=== PATIENT | female | born 1950 | race Caucasian/White ===

== ENCOUNTER → 2017-01-07 | Outpatient (CLI) | payer MEDICARE, OTHER ==
--- NOTE | 2017-01-07 11:12 | WOMENS IMAGING REPORT ---
EXAM DESCRIPTION: 3D SCREENING MAMMO BILAT COMPLETED DATE/TIME: 01/07/2017 10:39 am REASON FOR STUDY: SCREENING MAMMO Z12.31 ENCNTR SCREEN MAMMOGRAM FOR MALIGNANT NEOPLASM OF MITZI COMPARISON: June 2015 and March 2010 TECHNIQUE: Standard craniocaudal and mediolateral oblique views of each breast recorded using digita l acquisition and breast tomosynthesis. LIMITATIONS: None. FINDINGS: No masses, calcifications or architectural distortion. No areas of suspicion. Read with the assistance of CAD. .[facility] - R2 Cenova Version 1.3 .[facility] Imaging - R2 Cenova Version 1.3 .[facility] Imaging - R2 Cenova Version 2.4 .[facility] - R2 Cenova Version 2.4 .[facility] - R2 Garment Cutter Version 9.2 IMPRESSION: NORMAL MAMMOGRAM. BIRADS 1. BREAST DENSITY: b. There are scattered areas of fibroglandular density. BIRAD: 1 NEGATIVE RECOMMENDATION: ROUTINE SCREENING COMMENT: The patient has been notified of the results by letter per SA requirements. Additional no tification policies are in place for contacting patient with suspicious or incomplete findings. Quality ID #[id number]: The [employer] recommends an annual screening mammogram for women aged 40 years or over. This facility utilizes a reminder system to ensure that all patients receive reminder letters, and/or direct phone calls for appointments. This includes reminders for routine scr eening mammograms, diagnostic mammograms, or other Breast Imaging Interventions when appropriate. Th is patient will be placed in the appropriate reminder system. The [employer] (ACR) has developed recommendations for screening MRI of the breast s in certain patient populations, to be used in conjunction with mammography. Breast MRI surveillanc e may be appropriate for women with more than 20% lifetime risk of developing breast cancer as deter mined by genetic testing, significant family history of the disease, or history of mantle radiation f or Hodgkins Disease. ACR Practice Guidelines 2008. DBT Technology DBT is a type of tomographic mammography. With conventional mammography, overlapping breast tissue ma y make lesions difficult to detect, even with good compression. DBT uses an x-ray tube that rotates a round the breast, taking images at different angles. These images are then combined to create thin sl ices of the breast that the radiologist can view as a 3D reconstruction. The [employer] unit can perform full-field digital mammograms (2D imaging); or DBT (3D imaging); or both, in a combination mode that quickly performs both the mammogram and the tomosynthesis scan while the breast is still compressed. PQRS 6045F: Fluoroscopic imaging is not utilized for breast tomosynthesis. TECHNICAL DOCUMENTATION: FINDING NUMBER: (1) ASSESSMENT: (1) JOB ID: [id number] [employer]- All Rights Reserved
== END ==
LOC: WI 08:29
PROVIDERS: ATTEND Physician Assistant
DX: Z12.31 Encounter for screening mammogram for malignant neoplasm of breast (principal)
CPT/HCPCS: 77063; G0202; 77067

== ENCOUNTER 2017-04-21 10:20 | Day surgery (SDC) | payer MEDICARE, OTHER ==
[~2017-04-21 10:20] MED LIST: KETOROLAC TROMETHAMINE 0.45% 4 DROP/0.4 ML DROPERETTE OD PRN
[2017-04-21] MEDS ORDERED: CHONDR SU A NA/HYALUR INTRAOC KIT (SURGICARE) ONE (10:51)
[2017-04-21] MEDS ORDERED: LIDOCAINE 1% INJ-PF (10 MG/ML) 30 ML SDV ONE (10:51)
[2017-04-21] MEDS ORDERED: EPINEPHRINE INJ/PF 1 MG/1 ML AMPULE ONE (10:51)
[2017-04-21] MEDS: TETRACAINE HCL 0.5% OPH SOLN 2 ML OD PRN ×3 (11:19→12:05)
[2017-04-21] MEDS: TROPICAMIDE 1% OPH SOLN 3 ML OD PRN ×3 (11:20→11:41)
[2017-04-21] MEDS: CYCLOPENTOLATE 0.2%/PHENYLEPHRINE 1% OPH SOLN 2 ML OD PRN ×3 (11:20→11:41)
[2017-04-21] MEDS: BESIFLOXACIN HCL 0.6% OPH SUSP 5 ML BOTTLE OD PRN ×3 (11:20→12:41)
[2017-04-21] MEDS ORDERED: MIDAZOLAM 2 MG/2 ML INJ ONE (11:47)
[2017-04-21] MEDS ORDERED: FENTANYL CITRATE INJ/PF 100 MCG/2 ML AMPUL ONE (11:47)
--- NOTE | 2017-04-21 21:23 | [facility] DISCHARGE SUMMARY E ---
[facility] Discharge Summary NAME: LISHA REDMOND AGE: 66Y ADMITTED: 04/21/2017 DISCHARGED: 04/21/2017 FINAL DIAGNOSIS: CATARACT, RIGHT EYE. HISTORY/CLINIC COURSE: This is a 66-year-old female who underwent cataract extraction with Toric IOL of the right eye without complication, woke up in postoperative recovery in stable condition. She underwent surgery because she was having difficulty watching TV and doing computer work. Patient is to be on a regular diet. No bending at the waist, no heavy lifting. Patient should use the Besivance, Ilevro, and Durezol at 3 p.m. and 8 p.m., and sleep with a rigid shield. I will see her for 1 day postoperative tomorrow. DICTATING PHYSICIAN: ANTOINE BRUSH M.D. [id number] PHY#: [id number] 2013 ID: [id number] JOB#: [id number] ACCT: [id number] cc:ANTOINE BRUSH M.D. >
--- NOTE | 2017-04-21 21:23 | [facility] OPERATIVE REPORT E ---
[facility] Operative Report NAME: LISHA REDMOND AGE: 66Y DATE OF SURGERY: 04/21/2017 PREOPERATIVE DIAGNOSIS: CATARACT, RIGHT EYE. POSTOPERATIVE DIAGNOSIS: CATARACT, RIGHT EYE. OPERATION: Cataract extraction with intraocular lens implant of the right eye with a toric multifocal lens. SURGEON: ANTOINE BRUSH M.D. ANESTHESIA: Topical. COMPLICATIONS: None. ESTIMATED BLOOD LOSS: None. PROCEDURE: After appropriate consent was obtained and calculations made, the patient was brought back to the operating room where the patient was prepped and draped in sterile fashion. A lid speculum was placed and attention was directed to a paracentesis where a paracentesis blade made a small incision. Viscoelastic was then used to inflate the anterior chamber. Next, a 2.4 mm incision was made with the paracentesis blade. A continuous capsulorhexis forceps of approximately 5 mm was done using a cystitome and capsulorhexis forceps. Hydrodissection was carried out to make the lens freely mobile and then a divide and conquer technique was used to remove the lens with a CDE of approximately 19.8. Following this, the remaining cortical material was removed with irrigation/aspiration. After this the patient was then again marked. The marking procedure started in the preoperative holding area where 180 and 0 was marked with a marker. Now that the patient was in the operating room a 360-degree marker was used to yoav the axis at approximately 110 degrees and a toric lens of 15.0 diopters SN6AT was injected into the bag after filling with viscoelastic and rotating into proper position. The I/A was used to remove the viscoelastic material and the toric lens appeared to be appropriately aligned. A 10-0 nylon suture was used to close the corneal incision and TobraDex was instilled into the eye and a pressure patch was placed with a protective shield. The patient returned to postoperative recovery in stable condition. DICTATING PHYSICIAN: ANTOINE BRUSH M.D. [id number] PHY#: [id number] 2013 ID: [id number] JOB#: [id number] ACCT: [id number] cc:ANTOINE BRUSH M.D. >
== END 2017-04-21 13:27 | disposition home or self-care (01) ==
LOC: SC 10:20
PROVIDERS: ATTEND Internal Medicine
PROC: 08RJ3JZ Replacement of Right Lens with Synthetic Substitute, Percutaneous Approach (ICD-10-PCS; principal; 2017-04-21 12:00)
DX: H25.13 Age-related nuclear cataract, bilateral (principal); H57.03 Miosis; H04.123 Dry eye syndrome of bilateral lacrimal glands; E11.9 Type 2 diabetes mellitus without complications; I10 Essential (primary) hypertension; Z79.82 Long term (current) use of aspirin; Z79.899 Other long term (current) drug therapy; Z79.84 Long term (current) use of oral hypoglycemic drugs
CPT/HCPCS: 66984; 82962; J2250; J3490 ×2; A9270; J0171; J3010; 142

== ENCOUNTER 2017-05-12 11:59 | Day surgery (SDC) | payer MEDICARE, OTHER ==
[~2017-05-12 11:59] MED LIST changes: -KETOROLAC TROMETHAMINE 0.45% 4 DROP/0.4 ML DROPERETTE OD PRN; +KETOROLAC TROMETHAMINE 0.45% 4 DROP/0.4 ML DROPERETTE OS PRN
[2017-05-12] MEDS: CYCLOPENTOLATE 0.2%/PHENYLEPHRINE 1% OPH SOLN 2 ML OS PRN ×3 (12:16→12:36)
[2017-05-12] MEDS: TROPICAMIDE 1% OPH SOLN 3 ML OS PRN ×3 (12:16→12:36)
[2017-05-12] MEDS: BESIFLOXACIN HCL 0.6% OPH SUSP 5 ML BOTTLE OS PRN ×3 (12:16→13:37)
[2017-05-12] MEDS: TETRACAINE HCL 0.5% OPH SOLN 2 ML OS PRN ×3 (12:17→12:58)
[2017-05-12] MEDS ORDERED: EPINEPHRINE INJ/PF 1 MG/1 ML AMPULE ONE (12:24)
[2017-05-12] MEDS ORDERED: LIDOCAINE 1% INJ-PF (10 MG/ML) 30 ML SDV ONE (12:25)
[2017-05-12] MEDS ORDERED: CHONDR SU A NA/HYALUR INTRAOC KIT (SURGICARE) ONE (12:25)
[2017-05-12] MEDS ORDERED: MIDAZOLAM 2 MG/2 ML INJ ONE ×2 (12:32)
--- NOTE | 2017-05-12 22:23 | [facility] OPERATIVE REPORT E ---
[facility] Operative Report NAME: LISHA REDMOND AGE: 66Y DATE OF SURGERY: 05/12/2017 ROOM: PREOPERATIVE DIAGNOSIS: CATARACT, LEFT EYE. pupil miosis POSTOPERATIVE DIAGNOSIS: CATARACT, LEFT EYE. pupil miosis OPERATION: Complex cataract extraction with use of Malyugin ring and insertion of a Toric IOL for poor pupillary dilation. SURGEON: ANTOINE BRUSH M.D. ANESTHESIA: Topical. PROCEDURE: After obtaining appropriate consent, the patient's left eye was prepped and draped in sterile fashion as well as the surgeon in a sterile manner and cataract surgery was started. First a paracentesis blade was used to make a small side-port incision. Viscoelastic was used to inflate the anterior chamber. Next a 2.4 mm incision was made with the paracentesis blade. A continuous capsulorrhexis incision was made using a cystotome and Utrata forceps. Following this hydrodissection was carried out to make the lens fully loose and mobile and it was rotated 90 degrees. Following this, a iwcpsm-bgb-vkbxtvk technique was used to phacoemulsify the lens with a CDE of 9.32. The remaining cortex was removed with irrigation/aspiration. Provisc was instilled into the capsular bag to inflate the bag. A SN60WF, 14.5 SN 6 AT8 lens rotated to 95 degrees. The remaining viscoelastic material was removed with irrigation/aspiration. Following this, a 10-0 nylon suture was used to close the incision and it was found to be watertight. Vigamox was instilled in the eye and a protective shield was placed over the eye. The patient returned to the postoperative recovery in stable condition. Prior to making the capsulorhexis the Malyugin ring was inserted due to very myotic pupil. This was removed at the end of the case. DICTATING PHYSICIAN: ANTOINE BRUSH M.D. [id number] PHY#: [id number] ID: [id number] JOB#: [id number] ACCT: [id number] cc:ANTOINE BRUSH M.D. > MTDD
== END 2017-05-12 14:26 | disposition home or self-care (01) ==
LOC: SC 11:59
PROVIDERS: ATTEND Internal Medicine
PROC: 08RK3JZ Replacement of Left Lens with Synthetic Substitute, Percutaneous Approach (ICD-10-PCS; principal; 2017-05-12 13:30)
DX: H25.12 Age-related nuclear cataract, left eye (principal); H57.03 Miosis; Z96.1 Presence of intraocular lens; E11.9 Type 2 diabetes mellitus without complications; I10 Essential (primary) hypertension; Z79.899 Other long term (current) drug therapy; Z79.82 Long term (current) use of aspirin; Z79.84 Long term (current) use of oral hypoglycemic drugs
CPT/HCPCS: 66984; 82962; V2787; J2250; J3490 ×2; A9270; J0171; 142

== ENCOUNTER 2017-11-07 20:36 | Emergency (ER) | payer OTHER, MEDICARE ==
[2017-11-07 21:37] VITALS: BP 144/65
[2017-11-07] MEDS ORDERED: LIDOCAINE 5% (700 MG) TRANSDERMAL ADH..PATCH TP ONE (23:32)
[2017-11-07] MEDS ORDERED: ACETAMINOPHEN 325 MG TABLET PO ONE (23:32)
[2017-11-07] MEDS ORDERED: NAPROXEN 250 MG TABLET PO ONE (23:33)
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
== END 2017-11-07 23:53 | disposition home or self-care (01) ==
LOC: ER 20:36
DX: S16.1XXA Strain of muscle, fascia and tendon at neck level, initial encounter (principal); M54.2 Cervicalgia; M62.830 Muscle spasm of back; V43.52XA Car driver injured in collision with other type car in traffic accident, initial encounter; I10 Essential (primary) hypertension
CPT/HCPCS: 99284

== ENCOUNTER → 2018-09-04 | Outpatient (CLI) | payer MEDICARE, OTHER ==
--- NOTE | 2018-09-04 09:14 | RADIOLOGY REPORT (SQ) ---
EXAM DESCRIPTION: MRI ABDOMEN WITHOUT COMPLETED DATE/TIME: 09/04/2018 8:30 am REASON FOR STUDY: DISEASE OF PANCREAS, UNSPEC (K86.9) K86.9 DISEASE OF PANCREAS, UNSPECIFIED COMPARISON: None. TECHNIQUE: Multiplanar multisequence imaging performed without contrast including multi planar in an d out of phase T1 weighted images, T2 fat sat, T2 non fat sat images. Please note that the patient refused IV contrast and post contrasted images. CONTRAST TYPE AND DOSE: Patient refused IV contrast RENAL FUNCTION: Not indicated. ACR Type II contrast agent associated with few, if any, unconfounded cases of NSF LIMITATIONS: None. FINDINGS: LIVER: Overall normal size. Multiple masses are scattered throughout the liver parenchyma with a peripheral rim of decreased T1 and T2 weighted signal suggesting peripheral rim calcification . More geographic areas of surrounding decreased T1 and increased T2 signal are seen around these le sions. Findings are worrisome for metastatic disease. The largest in the right lobe is posteriorly, 4.3 cm in size. Largest in the left lobe is 3.4 cm in size just medial to the falciform ligament. No intrahepatic biliary ductal dilatation. Normal flow voids in the portal vein and hepatic veins. SPLEEN: 15 cm in length, mild splenomegaly. No focal lesions. PANCREAS: No masses. No adjacent inflammation or peripancreatic fluid collections. Pancreatic duct no t dilated. GALLBLADDER: Surgically absent ADRENAL GLANDS: No significant masses or asymmetry. RIGHT KIDNEY AND URETER: No masses. No hydronephrosis. LEFT KIDNEY AND URETER: No masses. No hydronephrosis. Left upper pole renal cortical cysts less than 3 cm in size AORTA AND VESSELS: No aneurysm. No dissection. Renal arteries, SMA, celiac without stenosis. RETROPERITONEUM: No retroperitoneal adenopathy, hemorrhage or masses. BOWEL: No visualized masses. No inflammation. No significant dilatation. ABDOMINAL WALL AND PERITONEUM: No hernias. No free fluid. BONES: No acute or significant findings. OTHER: At the upper edge of the field of view on the coronal images, several posterior lower lobe emelia g nodules are suspected. Follow-up two-view chest film recommended to evaluate for lung parenchymal metastatic disease IMPRESSION: Multiple liver lesions worrisome for metastatic disease Question multiple subcentimeter nodules in the lower lobes from metastatic disease. Two view chest f ilm recommended for followup TECHNICAL DOCUMENTATION: JOB ID: [id number]- All Rights Reserved Reading location - IP/workstation name: [email or web address]
== END ==
LOC: RAD 07:00
PROVIDERS: ATTEND Physician Assistant
DX: K86.9 Disease of pancreas, unspecified (principal); K76.9 Liver disease, unspecified
CPT/HCPCS: 74181; 82565

== ENCOUNTER 2018-12-04 18:48 | Emergency (ER) | payer MEDICARE, OTHER ==
[2018-12-04] MEDS ORDERED: ACETAMINOPHEN 325 MG TABLET PO ONE (18:57)
--- NOTE | 2018-12-04 19:23 | ER Document Report ---
ED Medical Screen (RME) - General Chief Complaint: Hip Injury Stated Complaint: FALL Time Seen by Provider: 12/04/18 18:57 Primary Care Provider: SHAYNA MARSH PA [Primary Care Provider] - Follow up as needed Notes: Patient is a 68-year-old female who presents the emergency department with a chief complaint of hip pain. She fell prior to arrival. Her brother states that her right foot crossed over the left and she ended up falling. The patient was discharged from [facility] earlier today. When she was at [facility], they stopped her chemo and took her central line out. Patient has a history of falls. Exam: Tender bilateral hip, near coccyx. Patient able to move upper extremities with no difficulty. I have greeted and performed a rapid initial assessment of this patient. A com prehensive ED assessment and evaluation of the patient, analysis of test results and completion of medical decision making process will be conducted by an additional ED providers. TRAVEL OUTSIDE OF THE [place] IN LAST 30 DAYS: No - Related Data Allergies/Adverse Reactions: No Known Allergies Allergy (Verified 05/12/17 12:19) Past Medical History - Past Medical History Cardiac Medical History: Reports: Hx Hypertension Denies: Hx Heart Attack Pulmonary Medical History: Denies: Hx Asthma Neurological Medical History: Denies: Hx Cerebrovascular Accident, Hx Seizures Renal/ Medical History: Denies: Hx Peritoneal Dialysis GI Medical History: Denies: Hx Hepatitis, Hx Hiatal Hernia, Hx Ulcer Infectious Medical History: Denies: Hx Hepatitis Past Surgical History: Denies: Hx Hysterectomy, Hx Mastectomy, Hx Open Heart Surgery, Hx Pacemaker Physical Exam - Vital signs Vitals: Temp Pulse Resp BP Pulse Ox 97.9 F 66 23 H 104/54 L 96 12/04/18 19:00 12/04/18 19:00 12/04/18 19:00 12/04/18 19:00 12/04/18 19:00 Course - Vital Signs Vital signs: Temp Pulse Resp BP Pulse Ox 97.9 F 66 23 H 104/54 L 96 12/04/18 19:00 12/04/18 19:00 12/04/18 19:00 12/04/18 19:00 12/04/18 19:00 Doctor's Discharge - Discharge Referrals: SHAYNA MARSH PA [Primary Care Provider] - Follow up as needed
[2018-12-04 20:31] LABS: ALKALINE PHOSPHATASE 464 U/L (38-126); ANION GAP 6 (5-19); ASPARTATE AMINO TRANSFERASE 34 U/L (14-36); BILIRUBIN,DIRECT 1.5 mg/dL (0.0-0.4); BILIRUBIN,TOTAL 2.2 mg/dL (0.2-1.3); BLOOD UREA NITROGEN 25 mg/dL (7-20); CALCIUM 7.8 mg/dL (8.4-10.2); CARBON DIOXIDE 24 mmol/L (22-30); CHLORIDE 97 mmol/L (98-107); CREATINE KINASE 22 U/L (30-135); GLUCOSE 106 mg/dL (75-110); POTASSIUM 4.2 mmol/L (3.6-5.0); TOTAL PROTEIN 4.8 g/dL (6.3-8.2)
[2018-12-04 20:36] LABS: ABSOLUTE EOSINOPHILS # (AUTO) 0.2 10^3/uL (0.0-0.6); ABSOLUTE LYMPHOCYTES (AUTO) 0.9 10^3/uL (0.5-4.7); ABSOLUTE MONOCYTES (AUTO) 0.2 10^3/uL (0.1-1.4); ABSOLUTE NEUT (AUTO) 14.8 10^3/uL (1.7-8.2); BASOPHILS % (AUTO) 0.2 % (0-2); EOSINOPHILS % (AUTO) 1.2 % (0-6); HEMATOCRIT 23.8 % (36.0-47.0); LYMPHOCYTES % (AUTO) 5.7 % (13-45); MEAN CORPUSCULAR HEMOGLOBIN 32.2 pg (27.0-33.4); MEAN CORPUSCULAR HGB CONC 33.3 g/dL (32.0-36.0); MEAN CORPUSCULAR VOLUME 97 fl (80-97); MONOCYTES % (AUTO) 1.3 % (3-13); PLATELET COUNT 211 10^3/uL (150-450); RED BLOOD COUNT 2.46 10^6/uL (3.72-5.28); SEGMENTED NEUTROPHILS % (AUTO) 91.6 % (42-78); TOTAL CELLS COUNTED % (AUTO) 100 %; WHITE BLOOD COUNT 16.2 10^3/uL (4.0-10.5)
[2018-12-04 20:38] LABS: HEMOGLOBIN 7.9 g/dL (12.0-15.5)
[2018-12-04 20:43] LABS: CREATINE KINASE MB 0.23 ng/mL (<4.55)
[2018-12-04 20:47] LABS: TROPONIN I < 0.012 ng/mL
--- NOTE | 2018-12-04 22:06 | RADIOLOGY REPORT (SQ) ---
EXAM DESCRIPTION: CT PELVIS WITHOUT IV CONTRAST COMPLETED DATE/TME: 12/04/2018 19:20 CLINICAL HISTORY: 68 years, Female, fall This exam was performed according to our departmental dose-optimization program which includes automated exposure control, adjustment of the mA and/or kVp according to patient size and/or use of iterative reconstruction technique where applicable. FINDINGS: Iliac bones are intact. Proximal femur is intact. Moderate bilateral hip degenerative changes. Sacrum is intact. Mild to moderate bilateral SI joint degenerative changes. No lytic or blastic lesions. Diffuse anasarca with subcutaneous stranding. There is moderate pelvic ascites in the visualized tissues of the pelvis. Bladder is within normal limits. Gynecologic organs are unremarkable. No significant pelvic lymphadenopathy. IMPRESSION: No evidence for pelvic fracture. Moderate pelvic ascites.
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
[2018-12-04] MEDS ORDERED: NORMAL SALINE 1000 ML 1,000 ML IV ONE (22:37)
[2018-12-04] MEDS ORDERED: FENTANYL CITRATE INJ/PF 100 MCG/2 ML AMPUL IV ONE (23:19)
[2018-12-04] MEDS ORDERED: PANTOPRAZOLE SODIUM 40 MG VIAL IV PRN (23:20)
[2018-12-04] MEDS ORDERED: PANTOPRAZOLE SODIUM 40 MG VIAL IV ONE (23:20)
--- NOTE | 2018-12-04 23:23 | RADIOLOGY REPORT (SQ) ---
EXAM DESCRIPTION: XR CHEST 1 VIEW COMPLETED DATE/TME: 12/04/2018 22:29 CLINICAL HISTORY: pain right ribs COMPARISON: None. FINDINGS: Single frontal view of the chest. Cardiomediastinal silhouette: Atherosclerotic calcification tortuosity of the thoracic aorta. Cardiomegaly. Right IJ Mediport with tip in the SVC. Lungs: Linear bibasilar opacities. No pneumothorax or large effusion. Low lung volumes. Bones: No acute osseous abnormality. Upper abdomen: No abnormality identified. IMPRESSION: 1. Linear bibasilar opacities may be related to low lung volumes and subsegmental atelectasis.
[2018-12-04 23:37] LABS: INTERNATIONAL RATION (INR) 1.26; PROTHROMBIN TIME 15.9 SEC (11.4-15.4)
[2018-12-04 23:45] LABS: APPEARANCE,URINE CLEAR; BILIRUBIN,URINE NEGATIVE (NEGATIVE); COLOR,URINE AMBER; GLUCOSE, URINE NEGATIVE (NEGATIVE); KETONES,URINE NEGATIVE (NEGATIVE); URINE SPECIFIC GRAVITY 1.023
[2018-12-04 23:46] LABS: LEUKOCYTE ESTERASE,URINE NEGATIVE (NEGATIVE); NITRITE,URINE NEGATIVE (NEGATIVE); PROTEIN,URINE 30 mg/dL (NEGATIVE)
[2018-12-05 06:07] VITALS: BP 124/74
--- NOTE | 2018-12-05 06:22 | ER Document Report ---
ED General - General Chief Complaint: Hip Injury Stated Complaint: FALL Time Seen by Provider: 12/04/18 18:57 Primary Care Provider: SHAYNA MARSH PA [Primary Care Provider] - Follow up as needed Notes: Patient is a 68-year-old female presents to the emergency department after a fall. Patient states she felt dizzy, lightheaded and then fell. Patient states she fell onto her buttocks. Patient's denying any loss of consciousness or vomiting. Patient states she overall just feels "weak." Patient's denying any chest pain or shortness of breath. Patient is currently under the care of oncologist Dr. Escobedo at [facility]. 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 Patient did undergo a pump disconnection today at [facility] after a chemotherapy treatment. Patient does voice she has had intermittent diarrhea for the last couple of days states it is "really dark black." Patient's denying any vomiting. TRAVEL OUTSIDE OF THE [place] IN LAST 30 DAYS: No - Related Data Allergies/Adverse Reactions: No Known Allergies Allergy (Verified 05/12/17 12:19) Past Medical History - General Information source: Patient, Relative, Transfer Record - Social History Smoking Status: Unknown if Ever Smoked Family History: Reviewed & Not Pertinent Patient has suicidal ideation: No Patient has homicidal ideation: No - Past Medical History Cardiac Medical History: Reports: Hx Hypertension Denies: Hx Heart Attack Pulmonary Medical History: Denies: Hx Asthma Neurological Medical History: Denies: Hx Cerebrovascular Accident, Hx Seizures Renal/ Medical History: Denies: Hx Peritoneal Dialysis GI Medical History: Denies: Hx Hepatitis, Hx Hiatal Hernia, Hx Ulcer Infectious Medical History: Denies: Hx Hepatitis Past Surgical History: Denies: Hx Hysterectomy, Hx Mastectomy, Hx Open Heart Surgery, Hx Pacemaker Review of Systems - Review of Systems Constitutional: denies: Fever EENT: No symptoms reported Cardiovascular: No symptoms reported Respiratory: No symptoms reported Gastrointestinal: See HPI Genitourinary: No symptoms reported Female Genitourinary: No symptoms reported Musculoskeletal: See HPI Skin: No symptoms reported Hematologic/Lymphatic: See HPI Neurological/Psychological: See HPI Physical Exam - Vital signs Vitals: Temp Pulse Resp BP Pulse Ox 97.9 F 66 23 H 104/54 L 96 12/04/18 19:00 12/04/18 19:00 12/04/18 19:00 12/04/18 19:00 12/04/18 19:00 - Notes Notes: GENERAL: Alert, interacts well. Pallor noted HEAD: Normocephalic, atraumatic. EYES: Pupils equal, round, and reactive to light. Extraocular movements intact. ENT: Oral mucosa moist, tongue midline. NECK: Full range of motion. Supple. Trachea midline. LUNGS: Clear to auscultation bilaterally, no wheezes, rales, or rhonchi. No respiratory distress. HEART: Regular rate and rhythm. No murmur ABDOMEN: Soft, non-tender. Non-distended. Bowel sounds present in all 4 quadrants. EXTREMITIES: Moves all 4 extremities spontaneously. No edema, normal radial and dorsalis pedis pulses bilaterally. No cyanosis. BACK: no cervical, thoracic, lumbar midline tenderness. No saddle anesthesia, normal distal neurovascular exam. NEUROLOGICAL: Alert and oriented x3. Normal speech. cranial nerves II through XII grossly intact. PSYCH: Normal affect, normal mood. SKIN: Warm, dry, normal turgor. Bandaged skin tears noted right forearm. Course - Re-evaluation Re-evalutation: I have spoken with Dr. Hooks at [facility]. She is on-call for oncology. She has stated that the patient was seen at their facility today for a pump disconnect. Note is stating that the patient did appear pale and weak. Decreased p.o. over the last couple of days. She is also noting that on November 28 there was a negative Hemoccult done at their facility. Dr. Hooks states in patient charts her hemoglobin was noted to be 8.2 at today's visit. Dr. Hooks also states that notes appear they were attempting to rule out a gastric ulcer on the patient as she has had recurrent drops in her hemoglobin. When I discussed this with patient she states she was scheduled for a colonoscopy and an endoscopy but they were unable to perform it because she was "too weak." Patient's hemoglobin in the emergency department is noted to be 7.9. Her blood pressure has noted to be 100 systolic throughout her visit here in the emergency department. Guaiac stool was positive for blood, no obvious melena seen, no bright red blood per rectum seen. I have spoken with hospitalist Dr. Krause at [facility]. He is reviewing patient's charts and notes that her systolic blood pressure is typically 100s when she is at their facility. We do not have gastroenterology on-call at our facility so patient will need to be transferred to [facility]. 12/05/18 06:21 Transport is currently at patient bedside. Patient's heart rate is 76, respiratory rate 20, SPO2 98 on room air, blood pressure 108/58. Patient stable for transfer. - Vital Signs Vital signs: Temp Pulse Resp BP Pulse Ox 98.1 F 80 20 124/74 99 12/05/18 06:05 12/05/18 06:05 12/05/18 06:05 12/05/18 06:05 12/05/18 06:05 - Laboratory Result Diagrams: 12/04/18 19:57 12/04/18 19:57 Laboratory results interpreted by me: 12/04/18 12/04/18 12/04/18 19:57 19:57 19:57 WBC 16.2 H RBC 2.46 L Hgb 7.9 L Hct 23.8 L RDW 22.0 H Lymph % (Auto) 5.7 L Hardeman % (Auto) 1.3 L Absolute Neuts (auto) 14.8 H Seg Neutrophils % 91.6 H PT APTT Sodium 127.1 L Chloride 97 L BUN 25 H Calcium 7.8 L Total Bilirubin 2.2 H Direct Bilirubin 1.5 H Alkaline Phosphatase 464 H Creatine Kinase 22 L NT-Pro-B Natriuret Pep 2930 H Total Protein 4.8 L Albumin 2.0 L Urine Protein Urine Urobilinogen Urine Ascorbic Acid 12/04/18 12/04/18 19:57 23:10 WBC RBC Hgb Hct RDW Lymph % (Auto) Hardeman % (Auto) Absolute Neuts (auto) Seg Neutrophils % PT 15.9 H APTT 42.0 H Sodium Chloride BUN Calcium Total Bilirubin Direct Bilirubin Alkaline Phosphatase Creatine Kinase NT-Pro-B Natriuret Pep Total Protein Albumin Urine Protein 30 H Urine Urobilinogen 8.0 H Urine Ascorbic Acid 40 H Discharge - Discharge Clinical Impression: Weakness Gastrointestinal bleeding Qualifiers: GI bleed type/associated pathology: unspecified gastrointestinal hemorrhage type Qualified Code(s): K92.2 - Gastrointestinal hemorrhage, unspecified Condition: Fair Disposition: [facility] Admitting Provider: Dr. Zamora Referrals: SHAYNA MARSH PA [Primary Care Provider] - Follow up as needed
--- NOTE | 2018-12-05 07:54 | EKG REPORT ---
SEVERITY:- ABNORMAL ECG - SINUS RHYTHM LOW VOLTAGE IN FRONTAL LEADS BORDERLINE ST DEPRESSION, LATERAL LEADS : Confirmed by: Kalpesh Fernandez MD 05-Dec-2018 07:53:26
== END 2018-12-05 06:45 | disposition short-term general hospital (02) ==
LOC: ER 18:48
DX: R53.1 Weakness (principal); K92.2 Gastrointestinal hemorrhage, unspecified; M25.552 Pain in left hip; M25.551 Pain in right hip; R42 Dizziness and giddiness; W18.30XA Fall on same level, unspecified, initial encounter; C76.0 Malignant neoplasm of head, face and neck; C79.89 Secondary malignant neoplasm of other specified sites; Z79.899 Other long term (current) drug therapy; R19.7 Diarrhea, unspecified; I10 Essential (primary) hypertension
CPT/HCPCS: 93005; 86900; 86901; 36415; 82553; 86850; 82550; 85025; 85610; 85730; 80053; 81001; 84484; 83880; 71045; 70450; 72125; 72192; 93010; A9270; J3010; C9113; J7030; 51701; 96365; 96366; 96375; 99285; S0164